=== PATIENT | female | born 1995 ===

== ENCOUNTER 2017-06-07 09:47 | Emergency (ER) | payer OTHER, BC ==
[2017-06-07 09:52] VITALS: TEMP 97.8; O2SAT 98; BMI 21.6
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
[2017-06-07 10:42] VITALS: BP 120/82; PULSE 94; RESP 14
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
== END 2017-06-07 11:33 | disposition home or self-care (01) ==
LOC: H.ER 09:47
DX: S93.402A Sprain of unspecified ligament of left ankle, initial encounter (principal); V14.4XXA Pedal cycle driver injured in collision with heavy transport vehicle or bus in traffic accident, initial encounter; Y93.55 Activity, bike riding; E06.3 Autoimmune thyroiditis; S50.311A Abrasion of right elbow, initial encounter